=== PATIENT | female | born 1945 | race Caucasian/White ===

== ENCOUNTER 2018-07-15 15:08 | Outpatient (CLI) | payer MEDICARE, BC ==
--- NOTE | 2018-07-15 17:42 | RAD ---
RADIOGRAPH RIGHT KNEE 2 VIEWS: Date: 07/15/18 HISTORY: 72-year-old female with osteoarthritis of the knee with bilateral knee pain. COMPARISON: None available. FINDINGS: Upright images. No joint effusion. Moderate size enthesophytes at anterior and superior poles of mike lla. Moderate size osteophytes of patellofemoral compartment with joint space narrowing. Mild to mode rate osteophytes at lateral compartment without significant joint space narrowing. Small osteophytes at medial compartment without significant joint space narrowing. No fracture or dislocation. Osteopen ia. IMPRESSION: 1. Moderate osteoarthrosis of the patellofemoral compartment. 2. Mild to moderate osteoarthrosis of lateral compartment. POS: [facility]
--- NOTE | 2018-07-15 18:50 | RAD ---
RIGHT FOOT THREE VIEWS: 07/15/2018 HISTORY: Bilateral foot pain. Osteoarthritis. COMPARISON: None. FINDINGS: There is prominent degenerative change involving the first metatarsophalangeal joint, as well as thro ughout the midfoot. Postoperative screws are seen overlying the medial aspect of the mid foot. Ther e is enthesophyte formation at the insertion of the Achilles tendon and, to a lesser degree, the orig in of the plantar aponeurosis. No displaced fracture or evidence of dislocation is seen. There are scattered areas of degenerative change involving the distal and proximal interphalangeal teddy ints, at the second through fifth toes. IMPRESSION: Chronic/degenerative changes, as described above. No displaced fracture or dislocation is seen. POS: [facility]
--- NOTE | 2018-07-15 18:52 | RAD ---
LEFT KNEE TWO VIEWS: 07/15/2018 HISTORY: Pain. Osteoarthritis. COMPARISON: None. FINDINGS: There is mild lateral compartment narrowing and moderate/severe medial compartment narrowing. There is prominent patellofemoral joint space narrowing and subchondral sclerosis with posterior patellar o steophyte formation. There is enthesophyte formation at the insertion of the quadriceps tendon and t he origin of the patellar tendon. No displaced fracture or evidence of dislocation is seen. IMPRESSION: Prominent multicompartment degenerative joint disease. No acute osseous abnormality. POS: [facility]
--- NOTE | 2018-07-15 19:11 | RAD ---
LEFT FOOT THREE VIEWS: 07/15/2018 HISTORY: Foot pain. COMPARISON: None. FINDINGS: There is severe degenerative change involving the first metatarsophalangeal joint with joint space na rrowing, subchondral sclerosis, and osteophyte formation. There is prominent multifocal degenerative joint disease involving the midfoot, with joint space narrowing, subchondral sclerosis, and osteophy te formation. There is enthesophyte formation involving the insertion of the Achilles tendon and the origin of the plantar aponeurosis. Scattered areas of degenerative change with joint space narrowing and osteophyte formation noted, inv olving the proximal and distal interphalangeal joints of the second through fifth toes. IMPRESSION: Multicompartment degenerative joint disease. No acute osseous abnormality. POS: [facility]
== END 2018-07-15 15:09 | disposition home or self-care (01) ==
LOC: BICRAD 15:08
PROVIDERS: ATTEND Internal Medicine Rheumatology
DX: M25.561 Pain in right knee (principal); M79.671 Pain in right foot; M25.562 Pain in left knee; M79.672 Pain in left foot; M17.0 Bilateral primary osteoarthritis of knee; M19.072 Primary osteoarthritis, left ankle and foot; M19.071 Primary osteoarthritis, right ankle and foot

== ENCOUNTER 2019-04-02 16:00 | Outpatient (CLI) | payer MEDICARE, BC | END 2019-04-02 16:01 | disposition home or self-care (01) | LOC: SLEEPLAB 16:00 | PROVIDERS: ATTEND Internal Medicine | DX: G47.33 Obstructive sleep apnea (adult) (pediatric) (principal); R53.83 Other fatigue; R06.83 Snoring; E11.9 Type 2 diabetes mellitus without complications; I10 Essential (primary) hypertension; M19.90 Unspecified osteoarthritis, unspecified site; K21.9 Gastro-esophageal reflux disease without esophagitis; G89.29 Other chronic pain; I49.9 Cardiac arrhythmia, unspecified; M45.9 Ankylosing spondylitis of unspecified sites in spine | CPT/HCPCS: 95806 ==

== ENCOUNTER 2019-06-26 13:43 | Outpatient (CLI) | payer MEDICARE, BC ==
--- NOTE | 2019-06-26 14:43 | BD ---
EXAM: DEXA bone density examination HISTORY: Age-related osteoporosis without current pathologic fracture COMPARISON: None FINDINGS: L1--bone mineral density 1.054 g/sq cm; T score 0.6. Z score 2.5 L2--bone mineral density 1.228 g/sq cm; T score 1.8; Z score 4.0 L3--bone mineral density 1.246 g/sq cm; T score 1.5; Z score 3.8 L4--bone mineral density 1.286 g/sq cm; T score 2.0, Z score 4.4 Total L1-L4--bone mineral density 1.199 g/sq cm; T score 1.4, Z score 3.6 Right femoral neck--bone mineral density0.574; T score -2.5, Z score -0.6 Total proximal right femur--bone mineral density 0.723; T score -1.8, Z score -0.2 This patient has a 10 year WHO fracture risk of a major osteoporotic fracture of 15% and of a hip fra cture of 3.8%. IMPRESSION: Based on the WHO criteria, the patient's bone mineral density is consideredOsteoporotic. The patient is at high risk for fracture.
== END 2019-06-26 13:44 | disposition home or self-care (01) ==
LOC: BICMAMMO 13:43
PROVIDERS: ATTEND Internal Medicine Rheumatology
DX: M81.0 Age-related osteoporosis without current pathological fracture (principal)
CPT/HCPCS: 77063; 77067; 77080

== ENCOUNTER 2019-09-19 10:51 | Day surgery (SDC) | payer MEDICARE, BC ==
[2019-09-18 09:48] VITALS: BMI 27.1
[~2019-09-19 10:51] MED LIST: EPHEDRINE 25 MG/5 ML SYRINGE ONE; Lidocaine 1% PF 5 ML VIAL ONE; Metoclopramide HCl 10 MG/2 ML VIAL ONE; Ondansetron PF 4 MG/2 ML Vial ONE; PHENYLEPHRINE-NS 100 MCG/ML 10 ML SYRINGE ONE; PROPOFOL 200 MG/20 ML VIAL ONE
[2019-09-19] MEDS ORDERED: Midazolam HCl 2 mg/2 ml Vial ONE (11:35)
[2019-09-19] MEDS ORDERED: Famotidine/PF 20 mg/2ml Vial ONE (11:35)
[2019-09-19 12:05] LABS: Anion Gap 15 mmol/L (10-20); BUN (Urea Nitrogen) 19 mg/dL (9.8-20.1); Calc. Creatinine Clearance 70 mL/min (70-130); Calcium 9.5 mg/dL (7.8-10.44); Carbon Dioxide 28 mmol/L (23-31); Chloride 98 mmol/L (98-107); Estimated GFR-MDRD 64; Glucose 113 mg/dL (83-110); Potassium 3.8 mmol/L (3.5-5.1); Sodium 137 mmol/L (136-145)
--- NOTE | 2019-09-19 15:51 | MRI ---
EXAM: RIGHT KNEE MRI WITHOUT IV CONTRAST: 09/19/19 HISTORY: Right knee pain, worsening chronic knee pain. Multiplanar and multisequence MRI examination of the right knee is performed. There is marked tricomp artment irregular cartilage loss and osteoarthrosis change. Moderate suprapatellar joint distention a nd evidence for joint effusion. There is a focal area of abnormal signal in the central tibial metaph ysis region measuring 2.1 x 4.3 cm evidence for a focal area of bone infarct. There are some inteross eous cystic changes noted involving the medial aspect of the lateral tibial plateau. There is also so me minimal interosseous cystic changes involving the medial aspect of the medial tibial plateau with some fairly prominent surrounding abnormal marrow signal suggesting an active process or possibly an insufficiency or stress type fracture. There is a fairly large multilobulated appearing cystic mass a t the proximal tibiofibular joint region which some appears to be interosseous and other is paraosseo us medial to the fibula proximally. I favor this being ganglion cyst or either large synovial cyst. T he popliteal hiatus appears to be somewhat prominent but I feel that this is either synovial or more likely ganglion cystic change. Irregular complex tear involving the anterior body anterior horn of the lateral meniscus with a proba ble associated posterior root tear. Medial meniscus demonstrates free edge irregularity at the snow remover ior root, evidence for a posterior root tear. Blunting of the free edge of the body of the medial men iscus. Medial and lateral collateral ligament complexes and quadriceps ten patellar tendons and anter ior and posterior cruciate ligaments appear intact. IMPRESSION: Evidence for medial and lateral meniscal tears. 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 Evidence for probable ganglion cystic changes of the proximal tibiofibular joint and medial to that. Interosseous cystic change of the central tibia involving the medial aspect of the lateral tibia prob ably interosseous ganglion cystic change. Subchondral cystic change involving the medial aspect of the medial femoral condyle with adjacent mar row edema which may just represent active interosseous cystic change although could be associated wit h a stress or insufficiency type fracture. Other findings as above. POS: [facility]
--- NOTE | 2019-09-19 16:00 | MRI ---
MRI OF THE RIGHT FOOT PERFORMED WITHOUT CONTRAST ENHANCEMENT: 09/19/19 HISTORY: Forefoot pain. Area of pain was marked as beginning in the midfoot region and extending distally. Jaci resendiz has a history of hardware removal one to two years ago. Artifact related to hardware changes of the midfoot region are noted. This obscures detail in this ar ea other than noting the presence of fairly pronounced arthritic change. There are moderate arthritic changes in the first metatarsophalangeal joint. Marrow signal change wit hin the metatarsals and phalanges is normal. No soft tissue masses are identified. IMPRESSION: 1. Marked arthritic changes of the midfoot region with postoperative changes. 2. No signs of any stress fracture or reaction. No soft tissue mass. POS: [facility]
== END 2019-09-19 15:25 | disposition home or self-care (01) ==
LOC: SDC/OP 10:51
PROVIDERS: ATTEND Family Medicine Sports Medicine
DX: G57.91 Unspecified mononeuropathy of right lower limb (principal); M25.561 Pain in right knee; M85.80 Other specified disorders of bone density and structure, unspecified site; M45.9 Ankylosing spondylitis of unspecified sites in spine; M19.90 Unspecified osteoarthritis, unspecified site; Z87.891 Personal history of nicotine dependence; Z79.82 Long term (current) use of aspirin; Z79.84 Long term (current) use of oral hypoglycemic drugs; Z79.899 Other long term (current) drug therapy; Z88.2 Allergy status to sulfonamides; Z98.1 Arthrodesis status
CPT/HCPCS: 36415; 80048; 93005; 93010; J2001; J2250; J2405; J2704; J2765; S0028

== ENCOUNTER 2019-10-27 10:52 | Outpatient (CLI) | payer MEDICARE, BC ==
[2019-10-27 11:51] LABS: Estimated GFR-MDRD - POC Greater than 90
--- NOTE | 2019-10-27 14:30 | CT ---
CT abdomen and pelvis with IV and oral contrast HISTORY: Esophageal varices. Liver disease. FINDINGS: Mild parenchymal scarring and retraction at the right posterior medial lung base. Small gas troesophageal hernia with adjacent varices apparent. Varices also extending to the splenic hilum. Liver has a heterogeneous density and nodular contour. Small amount of free fluid around the liver an d within the dependent portion of the pelvis. The spleen measures up to 16.8 cm. Cyst at the inferior pole of the right kidney measures up to 2.9 cm. No solid mass or hydronephrosis. Prominent calcification throughout the arterial structures. Subtle diffuse wall thickening of the col on is likely related to portal venous hypertension. Prominent degenerative changes of the lumbar spine. Significant central canal stenosis, most pronounc ed at the L2-3 level. Severe stenosis of the right neural foramina at each L3-4 and L4-5 level. . IMPRESSION: Cirrhotic appearance of the liver. Findings of portal venous hypertension include gastroe sophageal and splenic varices, ascites, colonic vascular congestion, and moderate splenomegaly. Prominent atherosclerosis. Prominent degenerative changes of the lumbar spine, including significant central canal and foraminal stenoses.
== END 2019-10-27 10:53 | disposition home or self-care (01) ==
LOC: SCSCT 10:52
PROVIDERS: ATTEND Internal Medicine Gastroenterology
DX: I85.00 Esophageal varices without bleeding (principal); R94.5 Abnormal results of liver function studies; K74.60 Unspecified cirrhosis of liver; K76.6 Portal hypertension; I86.8 Varicose veins of other specified sites; R18.8 Other ascites; K63.89 Other specified diseases of intestine; R16.1 Splenomegaly, not elsewhere classified; I70.0 Atherosclerosis of aorta; M48.061 Spinal stenosis, lumbar region without neurogenic claudication; M47.816 Spondylosis without myelopathy or radiculopathy, lumbar region
CPT/HCPCS: 74177; 82565

== ENCOUNTER 2019-12-12 20:35 | Inpatient (IN) | payer MEDICARE, BC ==
[2019-12-12 21:12] LABS: #Eosinphils 0.3 thou/uL (0.0-0.7); #Lymphocytes 1.2 thou/uL (1.20-3.40); #Monocytes 0.6 thou/uL (0.11-0.59); #Neutrophils 4.4 thou/uL (1.40-6.50); %Basophils 0.7 % (0.0-1.0); %Eosinophils 4.1 % (0.0-10.0); %Lymphocytes 18.2 % (21.0-51.0); %Monocytes 9.2 % (0.0-10.0); %Neutrophils 67.8 % (42.0-75.0); Hemoglobin 11.5 g/dL (12.0-16.0); Mean Corpuscular HGB CONC 31.6 g/dL (32.0-36.0); Mean Platelet Volume 8.1 fL (7.4-10.4); Platelet Count 92 thou/uL (130-400); RBC Distribution Width 14.5 % (11.5-14.5); Red Blood Cell (RBC) Count 3.59 mill/uL (4.20-5.40); White Blood Cell (WBC) Count 6.5 thou/uL (4.8-10.8)
[2019-12-12 21:24] LABS: ALT (SGPT) 28 U/L (8-55); AST (SGOT) 55 U/L (5-34); Albumin 3.3 g/dL (3.4-4.8); Alkaline Phosphatase 164 U/L (40-110); Anion Gap 15 mmol/L (10-20); BUN (Urea Nitrogen) 16 mg/dL (9.8-20.1); Calc. Creatinine Clearance 0 mL/min (70-130); Calcium 9.6 mg/dL (7.8-10.44); Carbon Dioxide 25 mmol/L (23-31); Chloride 104 mmol/L (98-107); Estimated GFR-MDRD 62; Globulin 3.7 g/dL (2.4-3.5); Glucose 214 mg/dL (83-110); Potassium 3.5 mmol/L (3.5-5.1); Sodium 140 mmol/L (136-145)
[2019-12-12 22:23] LABS: PTT 31.1 SEC (22.9-36.1)
[2019-12-12 22:24] LABS: INR-International Normal Ratio 1.2; Prothrombin Time 15.2 SEC (12.0-14.7)
[2019-12-12] MEDS ORDERED: Pantoprazole 40 MG VIAL ONE (23:01)
[2019-12-12] MEDS ORDERED: Ondansetron PF 4 MG/2 ML Vial ONE (23:01)
[2019-12-12] MEDS ORDERED: Promethazine HCl 12.5 MG in Sodium Chloride 0.9% 50 ML IVPB PRN (23:45)
[2019-12-12] MEDS ORDERED: Octreotide Acetate 1,000 mcg/ml Multi-Dose Vial IV SCH (23:45)
[2019-12-12] MEDS ORDERED: cloNIDine 0.1 MG TAB PO PRN (23:45)
[2019-12-12] MEDS ORDERED: Guaifenesin DM 100-10/5 ML UDCUP PO PRN (23:46)
[2019-12-12] MEDS ORDERED: HYDROcodone/Acetaminophen 5/325 mg Tablet PO PRN (23:46)
--- NOTE | 2019-12-12 23:50 | PDOC.HHP ---
Hospitalist HPI - History of Present Illness Hematemesis History of Present Illness: Patient is a 73 year old female with PMH NOLAN cirrhosis who presents to ED today for 2 episodes hematemesis throwing up ~1 cup BRB with clots, she has recently diagnosed NOLAN in last several months and sees Dr Bey of GI, she recently had and EGD with banding in last several weeks (was only diagnosed with cirrhosis very recently last weeks to months) and has never had bleeding like this. She had presyncopal episode and in ED heart rate was 120s in ED, now feeling well, denies melena/abdominal pain/syncope/SOB/chest pain. She had zofran and PPI in ED. She had had fatty liver for some time only recently progressed to cirrhosis. She has prediabetes. Hospitalist ROS - Review of Systems Constitutional: reports: other (presyncope). denies: fever, chills Eyes: denies: pain, vision change ENT: denies: mouth swelling, throat pain Respiratory: denies: cough, dry, shortness of breath Cardiovascular: denies: chest pain, palpitations Gastrointestinal: reports: nausea, vomiting, other (hematemesis) Genitourinary: denies: dysuria, frequency Musculoskeletal: denies: neck pain, shoulder pain Skin: denies: rash, lesions Neurological: denies: weakness, numbness All other systems reviewed; all pertinent +/- noted in HPI/Subj Hospitalist History - Past Medical History Other Medical History: DM fatty liver cirrhosis - Past Surgical History Other Surgical History: no surgical history - Family History Other Family History: reviewed no relevant family history - Social History Smoking Status: Never smoker Alcohol: reports: None Drugs: reports: none - Exam General Appearance: NAD, awake alert Eye: PERRL, anicteric sclera ENT: normocephalic atraumatic, no oropharyngeal lesions, moist mucosa Neck: supple, symmetric, no JVD, no thyromegaly, no lymphadenopathy, no carotid bruit Heart: no murmur, no gallops, no rubs, normal peripheral pulses Heart - other findings: tachcyardia, regular Respiratory: CTAB, no wheezes, no rales, no ronchi, normal chest expansion, no tachypnea, normal percussion Gastrointestinal: soft, non-tender, non-distended, normal bowel sounds, no palpable masses, no hepatomegaly, no splenomegaly, no bruit Extremities: no cyanosis, no clubbing, no edema Skin: normal turgor, no lesions, no rashes Neurological: cranial nerve grossly intact, normal sensation to touch, no weakness, no focal deficits, no new deficit Musculoskeletal: normal tone, normal strength, no muscle wasting Psychiatric: normal affect, normal behavior, A&O x 3 Hospitalist Results - Labs Result Diagrams: 12/12/19 20:53 12/12/19 20:53 Lab results: WBC 6.5 thou/uL (4.8-10.8) 12/12/19 20:53 Hgb 11.5 g/dL (12.0-16.0) L 12/12/19 20:53 Hct 36.5 % (36.0-47.0) 12/12/19 20:53 MCV 101.0 fL (78.0-98.0) H 12/12/19 20:53 Plt Count 92 thou/uL (130-400) L 12/12/19 20:53 Neutrophils % 67.8 % (42.0-75.0) 12/12/19 20:53 Sodium 140 mmol/L (136-145) 12/12/19 20:53 Potassium 3.5 mmol/L (3.5-5.1) 12/12/19 20:53 Chloride 104 mmol/L (98-107) 12/12/19 20:53 Carbon Dioxide 25 mmol/L (23-31) 12/12/19 20:53 BUN 16 mg/dL (9.8-20.1) 12/12/19 20:53 Creatinine 0.89 mg/dL (0.6-1.1) 12/12/19 20:53 Glucose 214 mg/dL (83-110) H 12/12/19 20:53 Calcium 9.6 mg/dL (7.8-10.44) 12/12/19 20:53 Total Bilirubin 2.0 mg/dL (0.2-1.2) H 12/12/19 20:53 AST 55 U/L (5-34) H 12/12/19 20:53 ALT 28 U/L (8-55) 12/12/19 20:53 Alkaline Phosphatase 164 U/L (40-110) H 12/12/19 20:53 Serum Total Protein 7.0 g/dL (6.0-8.3) 12/12/19 20:53 Albumin 3.3 g/dL (3.4-4.8) L 12/12/19 20:53 Lipase 31 U/L (8-78) 12/12/19 20:53 Additional comment: VITAL SIGNS SunDecember 12, 2019 23:39 MIKE Cedeno Griffin BP: 156/77 Pulse: 117 Resp: 18 Temp: 98.9 (Oral) Pain: 0 O2 sat: 99 on (Room Air) Time: 12/12/2019 23:39. Hospitalist H&P A/P - Plan Plan: 74 year old female admitted for: # NOLAN cirrhosis/fatty liver disease # history of esophageal varices # hematemesis/upper GI bleed # thrombocytopenia # anemia of blood loss - admit to telemetry - q12h CBC - NPO past midnight, consult Dr Sotero WILSON in am for EGD - protonix, octreotide, ceftriaxone ordered - no current need for transfusion, transfuse if hgb < 8 # prediabetes with hyperglycemia - SSI and order a1c DVT ppx - SCD GI ppx - PPI code: full
[2019-12-13] MEDS ORDERED: Dextrose 50% Abboject 50 ML SYRINGE SLOW IVP PRN (00:39)
[2019-12-13] MEDS ORDERED: Dextrose 5% in Water 1,000 ML IV PRN (00:39)
[2019-12-13] MEDS ORDERED: HumaLOG 300 UNITS/3 ML VIAL SC PRN (00:39)
[2019-12-13 01:03] VITALS: BMI 27.9
[2019-12-13] MEDS: Sodium Chloride 0.9% 1,000 ML IV SCH ×2 (01:34→22:03)
[2019-12-13] MEDS: cefTRIAXone\\ROCEPHIN 1 GM in Sodium Chloride 0.9% 100 ML IVPB SCH (01:43)
[2019-12-13] MEDS ORDERED: Octreotide Acetate 100 MCG/ML VIAL SLOW IVP SCH (01:45)
[2019-12-13] MEDS: Ondansetron PF 4 MG/2 ML Vial IVP PRN ×2 (03:35→22:43)
[2019-12-13 04:47] LABS: Hemoglobin A1c 5.3 % (4.0-6.0); Mean Corpuscular HGB CONC 33.7 g/dL (32.0-36.0); Mean Platelet Volume 8.4 fL (7.4-10.4); Platelet Count 83 thou/uL (130-400); RBC Distribution Width 14.4 % (11.5-14.5); Red Blood Cell (RBC) Count 2.93 mill/uL (4.20-5.40); White Blood Cell (WBC) Count 6.7 thou/uL (4.8-10.8)
[2019-12-13 04:51] LABS: INR-International Normal Ratio 1.3; Prothrombin Time 15.7 SEC (12.0-14.7)
[2019-12-13 05:03] LABS: ALT (SGPT) 27 U/L (8-55); AST (SGOT) 51 U/L (5-34); Alkaline Phosphatase 145 U/L (40-110); Anion Gap 14 mmol/L (10-20); BUN (Urea Nitrogen) 21 mg/dL (9.8-20.1); Bilirubin, Direct 0.9 mg/dL (0.1-0.3); Bilirubin, Total 1.9 mg/dL (0.2-1.2); Calc. Creatinine Clearance 80 mL/min (70-130); Carbon Dioxide 22 mmol/L (23-31); Chloride 107 mmol/L (98-107); Estimated GFR-MDRD 75; Glucose 135 mg/dL (83-110); Magnesium 1.5 mg/dL (1.6-2.6); Potassium 4.5 mmol/L (3.5-5.1); Protein, Total 6.2 g/dL (6.0-8.3); Sodium 138 mmol/L (136-145)
[2019-12-13] MEDS: Pantoprazole 40 MG VIAL IVP SCH ×2 (08:05→20:18)
--- NOTE | 2019-12-13 10:45 | CON ---
DATE OF CONSULTATION: 12/13/2019 REASON FOR CONSULTATION: Upper GI bleeding. HISTORY OF PRESENT ILLNESS: Ms. Natalia Buchanan is a very pleasant 74-year- old female seen in the ER yesterday with history of hematemesis x2. This morning, she also has some black tarry stool. She never had these symptoms before. She has no abdominal pain. No nausea or vomiting. Denies any indigestion or dyspepsia. No past history of any ulcer disease. The patient is known to have fatty liver over the years and recently has seen Dr. Bey. Apparently, she had seen Dr. Bey in the last 5 or 6 years. The patient underwent EGD and colonoscopy by Dr. Bey in October of 2019. I do have the findings of the operative report. Apparently, she had a colon polyp removed and the polyp was a tubular adenoma. She was told to have esophageal varices, but no banding done. She had abdominal CAT scan done recently, which shows cirrhotic liver and also esophageal varices. She also has minimal ascites. The patient has no history of any hepatitis C or any other liver disease. No history of alcohol abuse. The patient was told to have cirrhosis due to fatty liver and NOLAN. The patient does not take any aspirin or any blood thinners. She does take tramadol. Since admission, she has been started on IV octreotide. Her blood count is slightly low at 11.5, but dropping down to 10 today. The patient had no prior episodes of any GI bleeding in the past. No relevant history. ALLERGIES: SULFA, MORE OF INTOLERANCE, WHICH CAUSES NAUSEA AND STOMACH UPSET. SHE HAS NO SKIN RASH AND FACIAL SWELLING. SOCIAL HISTORY: The patient is . She is a nonsmoker. She does not drink any alcohol. MEDICAL ILLNESS: 1. Diabetes mellitus. 2. Fatty [id number] cirrhosis. 3. History of colon polyp. 4. Esophageal varices on CAT scan of the abdomen and also on her endoscopy. No variceal banding before. 5. History of mild heart disease and does not able to explain exactly what kind of heart disease she has. She has no angina. She is on beta blockers and does see Dr. Keegan De La Cruz once in the ER. FAMILY HISTORY: No family history of any cancer, liver disease, stroke, or heart attack. REVIEW OF SYSTEMS: A 10-point system review; CONSTITUTIONAL: She has good energy level. No history of any weight loss. No fever or chills. HEAD: No chronic headache. No dizziness. EYES: No diplopia. No impaired vision. EARS, NOSE, AND THROAT: No ear pain. No discharge. No sore throat. No nose bleed. NECK: No stiffness or limitation of movement. LUNGS: No chronic coughing. No hemoptysis. No dyspnea. CARDIOVASCULAR SYSTEM: No chest pain. No palpitation, orthopnea, or PND. ABDOMEN/GASTROINTESTINAL: history of nausea or vomiting with some vague abdominal pain over the right upper quadrant. GENITOURINARY: No dysuria, hematuria, or frequency of urination. MUSCULOSKELETAL: No back pain or limitation of movement. PSYCHIATRIC: No depression or anxiety. PHYSICAL EXAMINATION: GENERAL: She is a very pleasant, female, appears very comfortable. She is awake, alert, and communicative. VITAL SIGNS: Temperature 98 degrees Fahrenheit, pulse is 83, blood pressure 162 /79. HEENT: Conjunctivae are clear. NECK: Supple. No adenitis or thyromegaly noted. CARDIOVASCULAR SYSTEM: First and second heart sounds heard. LUNGS: Clear to auscultation. ABDOMEN: Soft. Abdomen is nontender. No organomegaly. No masses. Bowel sounds normal. EXTREMITIES: Reveal no edema. CENTRAL NERVOUS SYSTEM: Awake, alert, and communicative. She has no signs of encephalopathy. LABORATORY DATA: On admission, the CBC shows WBC is 6500, hemoglobin 11.5, hematocrit 36.5, MCV 101, platelet count 92,000. This morning CBC; hemoglobin dropping to 10, hematocrit 29.6, platelets 83,000, polymorphs 67, lymphocytes 18 , monocytes 9. She had bandemia of 28% yesterday, but today no bandemia. Chemistry panel from today; bilirubin is 1.5, AST 51, ALT 27, alkaline phosphatase 145, albumin 3. Lipase is 31. She has normal lytes. BUN is 21, creatinine 0.76, glucose 135. CLINICAL IMPRESSION: 1. A 74-year-old female with a history of longstanding fatty liver, nonalcoholic steatohepatitis, liver cirrhosis from fatty liver. The patient has had no perirectal bleeding. The patient already is on CAT scan. She never had a variceal banding done as an outpatient. Based on the history, the patient most likely has bleeding from esophageal varices or portal gastropathy. 2. Diabetes mellitus. 3. Fatty liver-nonalcoholic steatohepatitis. 4. Liver cirrhosis. 5. Colon polyp. PLAN: 1. Continue octreotide. 2. Serial H and H. 3. EGD later on today and possible variceal banding. I did talk to Ms. Buchanan About the EGD procedure. She has the real need to proceed as she had an EGD done in October of 2019. Job ID: [id number] [facility]
[2019-12-13] MEDS ORDERED: Ondansetron HCl/PF 4 MG/2 ML Vial IVP PRN (11:43)
[2019-12-13] MEDS ORDERED: Promethazine HCl 25 MG/ML VIAL SLOW IVP PRN (11:43)
[2019-12-13] MEDS ORDERED: Promethazine HCl 25 MG/ML VIAL IM PRN (11:43)
[2019-12-13] MEDS ORDERED: Ondansetron PF 4 MG/2 ML Vial ONE (11:43)
[2019-12-13] MEDS ORDERED: PACU-Morphine 4MG/ML VIAL SLOW IVP PRN (11:43)
[2019-12-13] MEDS ORDERED: Lidocaine 1% PF 5 ML VIAL ONE (11:54)
[2019-12-13] MEDS ORDERED: PROPOFOL 200 MG/20 ML VIAL ONE (11:54)
[2019-12-13] MEDS: hydrALAZINE 20 MG/ML VIAL SLOW IVP PRN ×2 (15:35→20:19)
[2019-12-13 17:02] LABS: Hemoglobin 10.3 g/dL (12.0-16.0); Mean Corpuscular HGB CONC 34.1 g/dL (32.0-36.0); Mean Corpuscular Hemoglobin 34.3 pg (27.0-31.0); Mean Platelet Volume 8.1 fL (7.4-10.4); Platelet Count 112 thou/uL (130-400); RBC Distribution Width 14.4 % (11.5-14.5); White Blood Cell (WBC) Count 10.1 thou/uL (4.8-10.8)
[2019-12-13] MEDS: Acetaminophen 325 MG TAB PO PRN (20:18)
--- NOTE | 2019-12-13 20:38 | PDOC.HOSPP ---
- Subjective Encounter Date: 12/13/19 - Objective Vital Signs & Weight: Vital Signs (12 hours) Temp Pulse Resp BP BP BP Pulse Ox 12/13/19 20:19 110 H 166/74 H 12/13/19 16:09 172/75 H 12/13/19 15:35 99 12/13/19 15:29 98 F 99 16 186/83 H 97 12/13/19 12:12 97.9 F 100 18 156/64 H 97 Weight Weight 168 lb I&O: 12/12/19 12/13/19 12/14/19 06:59 06:59 06:59 Intake Total 800 1600 Output Total 300 752 Balance 500 848 Result Diagrams: 12/13/19 16:45 12/13/19 04:16 Additional Labs: Accuchecks 12/13/19 12/13/19 16:39 06:09 POC Glucose 117 H 165 H Hospitalist ROS - Medication Medications: Active Medications Generic Name Dose Route Start Last Admin Trade Name Freq PRN Reason Stop Dose Admin Acetaminophen 650 mg 12/12/19 23:46 12/13/19 20:18 Tylenol PO 650 mg Q4H PRN Administration Headache/Fever/Mild Pain (1-3) Hydralazine HCl 10 mg 12/12/19 23:45 12/13/19 20:19 Apresoline SLOW IVP 10 mg Q6H PRN Administration SBP GREATER THAN 160 Sodium Chloride 1,000 mls @ 75 mls/hr 12/12/19 23:45 12/13/19 01:34 Normal Saline 0.9% IV 1,000 mls .[id number] KATI Administration Ceftriaxone Sodium 1 gm/ 100 mls @ 200 mls/hr 12/13/19 01:00 12/13/19 01:43 Sodium Chloride IVPB 12/17/19 01:29 100 mls Q24HR KATI Administration Ondansetron HCl 4 mg 12/12/19 23:45 12/13/19 03:35 Zofran IVP 4 mg Q6H PRN Administration Nausea/Vomiting use 1st Pantoprazole Sodium 40 mg 12/13/19 09:00 12/13/19 20:18 Protonix IVP 40 mg Q12HR KATI Administration Sodium Chloride 10 ml 12/13/19 09:00 12/13/19 20:19 Flush - Normal Saline IVF 10 ml Q12HR KATI Administration Hosp A/P (1) Hematemesis Code(s): K92.0 - HEMATEMESIS Status: Acute (2) Liver cirrhosis secondary to NOLAN Code(s): K75.81 - NONALCOHOLIC STEATOHEPATITIS (NOLAN); K74.60 - UNSPECIFIED CIRRHOSIS OF LIVER Status: Acute (3) Anemia due to acute blood loss Code(s): D62 - ACUTE POSTHEMORRHAGIC ANEMIA Status: Acute (4) Esophageal varices Code(s): I85.00 - ESOPHAGEAL VARICES WITHOUT BLEEDING Status: Acute - Plan The patient was n.p.o. this morning for planned EGD with band ligation of esophageal varices. No further episodes of hematemesis. H&H stable. Continue Protonix, octreotide, and ceftriaxone. Appreciate GI.
[2019-12-13] MEDS ORDERED: Melatonin 3 MG TAB PO PRN (21:33)
[2019-12-14] MEDS: cefTRIAXone\\ROCEPHIN 1 GM in Sodium Chloride 0.9% 100 ML IVPB SCH (01:01)
[2019-12-14] MEDS: Sodium Chloride 0.9% 1,000 ML IV SCH (03:57)
[2019-12-14 04:44] LABS: Hemoglobin 10.1 g/dL (12.0-16.0); Mean Corpuscular HGB CONC 33.4 g/dL (32.0-36.0); Mean Corpuscular Hemoglobin 34.1 pg (27.0-31.0); Mean Platelet Volume 7.8 fL (7.4-10.4); Platelet Count 124 thou/uL (130-400); RBC Distribution Width 14.8 % (11.5-14.5); Red Blood Cell (RBC) Count 2.96 mill/uL (4.20-5.40); White Blood Cell (WBC) Count 9.2 thou/uL (4.8-10.8)
[2019-12-14 04:51] LABS: INR-International Normal Ratio 1.2
[2019-12-14 05:06] LABS: ALT (SGPT) 28 U/L (8-55); AST (SGOT) 48 U/L (5-34); Albumin 3.3 g/dL (3.4-4.8); Alkaline Phosphatase 118 U/L (40-110); Anion Gap 13 mmol/L (10-20); BUN (Urea Nitrogen) 24 mg/dL (9.8-20.1); Calc. Creatinine Clearance 74 mL/min (70-130); Carbon Dioxide 21 mmol/L (23-31); Chloride 107 mmol/L (98-107); Estimated GFR-MDRD 68; Glucose 126 mg/dL (83-110); Magnesium 1.4 mg/dL (1.6-2.6); Potassium 3.6 mmol/L (3.5-5.1); Protein, Total 6.6 g/dL (6.0-8.3); Sodium 137 mmol/L (136-145)
[2019-12-14] MEDS: Octreotide Acetate 1,250 MCG in Sodium Chloride 0.9% 250 ML 250 ML IVPB SCH (05:07)
[2019-12-14] MEDS: hydrALAZINE 20 MG/ML VIAL SLOW IVP PRN ×2 (05:17→14:31)
[2019-12-14] MEDS: Ondansetron PF 4 MG/2 ML Vial IVP PRN (05:27)
--- NOTE | 2019-12-14 05:32 | OP ---
DATE OF PROCEDURE: 12/13/2019 PROCEDURES PERFORMED: 1. Esophagogastroduodenoscopy. 2. Esophageal variceal banding x2. PREOPERATIVE DIAGNOSES: Liver cirrhosis, gastrointestinal bleeding, esophageal varices, and portal hypertensive gastropathy. INDICATIONS FOR PROCEDURE: Ms. Natalia Buchanan is a 74-year-old female with history of fatty liver over the years and developed liver cirrhosis due to NOLAN. She had a CAT scan of abdomen done, which revealed a nodular liver and also what appears to be esophageal varices. The patient had no previous history of any bleeding. She presents with hematemesis and also melena. The patient is undergoing EGD. POSTOPERATIVE DIAGNOSES: 3 to 4+ varicosities, 3 columns, distal esophagus extending to mid esophagus. There are 2 areas of what appears to be bleeding over the esophagus, which were banded. At the time of endoscopy, no active bleeding seen. DESCRIPTION OF PROCEDURE: The patient was placed on the left lateral position and was given sedation by Anesthesia Department. A bite block was placed. A Pentax video gastroscope under direct vision passed down the oropharynx past the GE junction into the stomach and subsequently descending duodenum. There was no active bleeding seen at the time of endoscopy. There was some old blood and some small amount of coffee-ground aspirate in the stomach. The fundus showed no gastric varices. The patient appears to have diffuse portal hypertensive gastropathy. No active bleeding seen. The gastric antrum and incisura, no lesion. The duodenal bulb and descending duodenum, no pathology. The scope was withdrawn back into the stomach. The patient had 3 columns of 3 to 4+ varicosities. A 32 to 34 cm from the oral incisor, she had two blisters and slightly ulcerated. I felt that this was site of bleeding. So, I elected to apply 2 banding over the area with good hemostasis. The scope was removed. RECOMMENDATIONS: 1. Clear liquid diet. 2. Continue IV octreotide for 72 hours and may taper off. 3. Consider to follow up H and H and transfuse p.r.n. Job ID: [id number] [facility]
[2019-12-14] MEDS: Pantoprazole 40 MG VIAL IVP SCH ×2 (09:27→21:09)
--- NOTE | 2019-12-14 12:15 | PRG ---
DATE OF SERVICE: 12/14/2019 SUBJECTIVE: This is a 74-year-old female with hypertension, arthritis, and also recently diagnosed liver cirrhosis. The patient was hospitalized because of hematemesis and melena. She underwent EGD yesterday and was found to have two spots of what appeared to be variceal bleeding. Both were banded. The patient still has three columns of large varicose veins. The patient done well overnight. She has some black tarry stool, but the blood count is pretty stable. Over the last 24 hours, her blood count is around 10 to 10.1. Her platelet count is low at 124,000. She has multiple complaints. She complains of arthritic pains and muscle cramps on nighttime, not able to sleep. Apparently, she was taking some amitriptyline at home and tramadol for pain. The patient also feels hungry. She has no nausea, no vomiting. No abdominal pain. PHYSICAL EXAMINATION: VITAL SIGNS: Afebrile, pulse is 92, blood pressure 141/67. HEENT: Conjunctivae are clear. CARDIOVASCULAR: Normal heart sounds. LUNGS: Clear to auscultation. ABDOMEN: Soft. No organomegaly. No tenderness. No masses. LABORATORY DATA: From today, WBC 9200, hemoglobin is 10.1, hematocrit 30.1, platelet count 124,000. Chem panel; normal Chem-7, glucose is 126, BUN is 24, creatinine 0.83, albumin is 3.3, bilirubin is 2, magnesium is low at 1.4, alkaline phosphatase 118. CLINICAL IMPRESSION: 1. Liver cirrhosis due to fatty liver. 2. Anemia due to blood loss. 3. Mild thrombocytopenia. 4. Hypertension. 5. Arthritis. RECOMMENDATIONS: 1. Continue octreotide until tomorrow morning, we will taper off tomorrow morning. 2. Follow up hemoglobin and hematocrit. 3. Add magnesium for muscle crampings and resume home medicines including amitriptyline and tramadol at bedtime. Job ID: [id number]
--- NOTE | 2019-12-14 12:42 | PDOC.HOSPP ---
- Subjective Encounter Date: 12/14/19 Subjective: Denies any hematemisis or vince - Objective Vital Signs & Weight: Vital Signs (12 hours) Temp Pulse Resp BP BP Pulse Ox 12/14/19 09:21 97.9 F 92 18 141/67 H 98 12/14/19 06:25 133/63 12/14/19 05:17 101 H 178/84 H 12/14/19 04:21 98.4 F 101 H 18 178/84 H 98 Weight Weight 185 lb 4.8 oz I&O: 12/13/19 12/14/19 12/15/19 06:59 06:59 06:59 Intake Total 800 3025 Output Total 300 1552 Balance 500 1473 Result Diagrams: 12/14/19 04:28 12/14/19 04:28 Additional Labs: Accuchecks 12/14/19 12/14/19 12/13/19 10:53 06:19 20:54 POC Glucose 146 H 149 H 127 H 12/13/19 16:39 POC Glucose 117 H Hospitalist ROS - Medication Medications: Active Medications Generic Name Dose Route Start Last Admin Trade Name Freq PRN Reason Stop Dose Admin Acetaminophen 650 mg 12/12/19 23:46 12/13/19 20:18 Tylenol PO 650 mg Q4H PRN Administration Headache/Fever/Mild Pain (1-3) Hydrocodone Bitart/Acetaminophen 1 tab 12/12/19 23:46 12/13/19 22:43 Stewart 5/325 PO 1 tab Q4H PRN Administration Moderate Pain (4-6) Hydralazine HCl 10 mg 12/12/19 23:45 12/14/19 05:17 Apresoline SLOW IVP 10 mg Q6H PRN Administration SBP GREATER THAN 160 Octreotide Acetate 1,250 mcg/ 251.25 mls @ 10.05 mls/hr 12/12/19 23:45 05:07 Sodium Chloride IVPB 251.25 mls INF KATI Administration 50 MCG/HR Sodium Chloride 1,000 mls @ 75 mls/hr 12/12/19 23:45 12/14/19 03:57 Normal Saline 0.9% IV Not Given .[id number] KATI Ceftriaxone Sodium 1 gm/ 100 mls @ 200 mls/hr 12/13/19 01:00 12/14/19 01:01 Sodium Chloride IVPB 12/17/19 01:29 100 mls Q24HR KATI Administration Melatonin 3 mg 12/13/19 21:33 12/13/19 21:55 Melatonin PO 3 mg HS PRN Administration Insomnia Ondansetron HCl 4 mg 12/12/19 23:45 12/14/19 05:27 Zofran IVP 4 mg Q6H PRN Administration Nausea/Vomiting use 1st Pantoprazole Sodium 40 mg 12/13/19 09:00 12/14/19 09:27 Protonix IVP 40 mg Q12HR KATI Administration Sodium Chloride 10 ml 12/13/19 09:00 12/14/19 09:28 Flush - Normal Saline IVF 10 ml Q12HR KATI Administration - Exam General Appearance: awake alert ENT: normocephalic atraumatic Neck: supple Heart: RRR, no murmur, no gallops, no rubs Respiratory: CTAB, no wheezes, no rales, no ronchi, normal chest expansion Gastrointestinal: soft, non-tender, non-distended, normal bowel sounds Extremities: no cyanosis Hosp A/P (1) Hematemesis Code(s): K92.0 - HEMATEMESIS Status: Acute (2) 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 this morning for planned EGD with band ligation of esophageal varices. No further episodes of hematemesis. H&H stable. Continue Protonix, octreotide, and ceftriaxone. Appreciate GI. 12/13: S/P EGD with band ligation. No further episodes of bleeding. H&H stable. Octreotide will be DCed tomorrow. Continue Ceftriaxone and protonix.
[2019-12-14] MEDS ORDERED: Spironolactone 25 MG TAB PO SCH (12:45)
[2019-12-14] MEDS ORDERED: Furosemide 20 MG TAB PO SCH (12:45)
[2019-12-14 17:17] LABS: Hemoglobin 9.7 g/dL (12.0-16.0); Mean Corpuscular Hemoglobin 33.7 pg (27.0-31.0); Mean Corpuscular Volume 99.1 fL (78.0-98.0); Mean Platelet Volume 7.4 fL (7.4-10.4); Platelet Count 118 thou/uL (130-400); RBC Distribution Width 14.8 % (11.5-14.5); Red Blood Cell (RBC) Count 2.89 mill/uL (4.20-5.40); White Blood Cell (WBC) Count 8.3 thou/uL (4.8-10.8)
[2019-12-14] MEDS: Acetaminophen 325 MG TAB PO PRN ×2 (17:25→21:07)
[2019-12-14] MEDS ORDERED: traMADol HCl 50 MG TAB PO SCH (20:00)
[2019-12-14] MEDS ORDERED: Amitriptyline HCl 25 MG TAB PO SCH (21:00)
[2019-12-14] MEDS: Magnesium Oxide 400 MG TAB PO SCH (21:09)
[2019-12-15] MEDS: cefTRIAXone\\ROCEPHIN 1 GM in Sodium Chloride 0.9% 100 ML IVPB SCH (01:39)
[2019-12-15 04:35] LABS: Mean Corpuscular HGB CONC 33.8 g/dL (32.0-36.0); Mean Corpuscular Hemoglobin 33.8 pg (27.0-31.0); Mean Platelet Volume 7.4 fL (7.4-10.4); Platelet Count 94 thou/uL (130-400); RBC Distribution Width 14.4 % (11.5-14.5); Red Blood Cell (RBC) Count 2.65 mill/uL (4.20-5.40); White Blood Cell (WBC) Count 6.3 thou/uL (4.8-10.8)
[2019-12-15 04:39] LABS: INR-International Normal Ratio 1.2; Prothrombin Time 15.3 SEC (12.0-14.7)
[2019-12-15 04:56] LABS: ALT (SGPT) 25 U/L (8-55); AST (SGOT) 45 U/L (5-34); Albumin 3.1 g/dL (3.4-4.8); Alkaline Phosphatase 112 U/L (40-110); Anion Gap 12 mmol/L (10-20); BUN (Urea Nitrogen) 22 mg/dL (9.8-20.1); Bilirubin, Direct 0.7 mg/dL (0.1-0.3); Bilirubin, Total 1.3 mg/dL (0.2-1.2); Calc. Creatinine Clearance 68 mL/min (70-130); Calcium 8.3 mg/dL (7.8-10.44); Carbon Dioxide 23 mmol/L (23-31); Chloride 105 mmol/L (98-107); Estimated GFR-MDRD 55; Glucose 120 mg/dL (83-110); Magnesium 1.6 mg/dL (1.6-2.6); Potassium 3.3 mmol/L (3.5-5.1); Protein, Total 6.2 g/dL (6.0-8.3); Sodium 137 mmol/L (136-145)
[2019-12-15] MEDS: Acetaminophen 325 MG TAB PO PRN ×2 (06:34→17:02)
[2019-12-15] MEDS: Octreotide Acetate 1,250 MCG in Sodium Chloride 0.9% 250 ML 250 ML IVPB SCH (07:17)
[2019-12-15] MEDS ORDERED: Spironolactone 25 MG TAB PO SCH (08:00)
[2019-12-15] MEDS ORDERED: Amitriptyline HCl 25 MG TAB PO SCH (09:00)
[2019-12-15] MEDS ORDERED: Furosemide 20 MG TAB PO SCH (09:00)
[2019-12-15] MEDS: Magnesium Oxide 400 MG TAB PO SCH ×2 (09:37→17:03)
[2019-12-15] MEDS ORDERED: Octreotide Acetate 1,250 MCG in Sodium Chloride 0.9% 250 ML 250 ML IVPB SCH (11:30)
[2019-12-15] MEDS: Pantoprazole 40 MG VIAL IVP SCH (12:15)
[2019-12-15] MEDS: hydrALAZINE 20 MG/ML VIAL SLOW IVP PRN (13:21)
[2019-12-15 15:07] VITALS: TEMP 98.6
[2019-12-15 16:56] LABS: Hemoglobin 10.3 g/dL (12.0-16.0); Mean Corpuscular HGB CONC 34.2 g/dL (32.0-36.0); Mean Corpuscular Hemoglobin 34.1 pg (27.0-31.0); Mean Corpuscular Volume 99.7 fL (78.0-98.0); Mean Platelet Volume 7.4 fL (7.4-10.4); Platelet Count 135 thou/uL (130-400); RBC Distribution Width 14.7 % (11.5-14.5); Red Blood Cell (RBC) Count 3.01 mill/uL (4.20-5.40); White Blood Cell (WBC) Count 9.6 thou/uL (4.8-10.8)
[2019-12-15 16:59] VITALS: BP 91/50
--- NOTE | 2019-12-15 18:16 | PRG ---
DATE OF SERVICE: 12/15/2019 SUBJECTIVE: This is a 74-year-old female, hospitalized on 12/12/2019 with hematemesis and also having black tarry stool. She underwent EGD on 12/13/2019 and was found to have esophageal varices and had banding done. She was on IV octreotide. She had done well over the last 3 days. Although she has sometimes noted tarry stool, her blood count remained stable. Not having nausea, vomiting. No hematemesis. No abdominal pain. She is anxious to get out of the hospital and wants to go home. She had been asking for discharge every day since I saw her over the weekend. Her octreotide was tapered off to 25 mcg per hour this morning. She has no complaints. OBJECTIVE: VITAL SIGNS: Afebrile, her pulse is 104, blood pressure 174/74. HEENT: Conjunctivae are clear. CARDIOVASCULAR: First and second sounds heard. LUNGS: Clear to auscultation. ABDOMEN: Soft. No organomegaly. No tenderness. LABORATORY DATA: WBC 9600, hemoglobin 10.3, hematocrit 30, MCV 99.7, platelet count is 135,000. RECOMMENDATION: Discontinue IV octreotide this evening. As she is clinically stable and blood count has been stable over the last 72 hours, she can go home. She will be sent to see Dr. Sherry Bey, her primary business area manager. Apparently, she will need repeat EGD and banding in the future. Job ID: [id number]
--- NOTE | 2019-12-16 06:06 | DIS ---
DATE OF ADMISSION: 12/12/2019 DATE OF DISCHARGE: 12/15/2019 DISCHARGE DIAGNOSES: 1. Hematemesis. 2. Esophageal varices. 3. Liver cirrhosis secondary to nonalcoholic steatohepatitis. 4. Anemia due to acute blood loss. DISCHARGE MEDICATIONS: 1. Pantoprazole 40 mg orally daily. 2. Aldactone 100 mg orally daily. 3. Furosemide 40 mg orally daily. 4. Ursodiol 300 mg two tablets daily. 5. Tramadol 50 mg orally every 6 hours as needed for pain. 6. Montelukast 10 mg orally daily. 7. Metoprolol succinate 50 mg orally daily. 8. Metformin 500 mg orally twice daily. 9. Lisinopril 10 mg orally daily. 10. Leflunomide 20 mg orally daily. 11. Gabapentin 600 mg orally twice daily. 12. Citalopram 10 mg orally daily. 13. Aspirin 81 mg orally daily. 14. Amitriptyline 10 mg orally nightly. HISTORY OF PRESENT ILLNESS AND HOSPITAL COURSE: The patient is a 74-year-old female with history of NOLAN cirrhosis, who presented to the ED with 2 episodes of hematemesis, throwing up about one cup of bright red blood with clots. She was diagnosed with NOLAN several months ago and follows with Dr. Bey from GI. The patient had a presyncopal episode in the ER and her heart rate was elevated at 120. Fluid resuscitation was initiated and the patient was admitted to the hospital. Her hemoglobin remained stable throughout her hospital stay. She was started on IV octreotide drip, Protonix drip, and IV Rocephin. GI was consulted and the patient underwent an EGD procedure by Dr. Camarena, which showed portal hypertensive gastropathy and esophageal varices, status post banding x2. Postoperative hospital course was unremarkable and the patient was discharged home in stable condition. Job ID: [id number]
== END 2019-12-15 18:20 | disposition home or self-care (01) | DRG 432 ==
LOC: ERS 20:35 → 2NO 23:30
PROVIDERS: ADMIT Internal Medicine; ATTEND Internal Medicine
PROC: 06L38CZ Occlusion of Esophageal Vein with Extraluminal Device, Via Natural or Artificial Opening Endoscopic (ICD-10-PCS; principal; 2019-12-13)
DX: K74.69 Other cirrhosis of liver (principal); I85.11 Secondary esophageal varices with bleeding; K76.6 Portal hypertension; D62 Acute posthemorrhagic anemia; R18.8 Other ascites; D69.6 Thrombocytopenia, unspecified; K31.89 Other diseases of stomach and duodenum; M19.90 Unspecified osteoarthritis, unspecified site; E11.65 Type 2 diabetes mellitus with hyperglycemia; K75.81 Nonalcoholic steatohepatitis (NASH); Z88.2 Allergy status to sulfonamides; Z86.010 Personal history of colon polyps
CPT/HCPCS: 36415; 36416; 80048; 80053; 80076; 83036; 83690; 83735; 85025; 85027; 85610; 85730; 86850; 86900; 86901; 93005; 96361; 96374; C9113; J0360; J0696; J2001; J2354; J2405; J2704; J3490; J7050

== ENCOUNTER 2019-12-25 11:08 | Day surgery (SDC) | payer MEDICARE, BC ==
[2019-12-24 13:53] VITALS: BMI 27.9
[2019-12-25] MEDS ORDERED: Lidocaine 1% PF 5 ML VIAL ONE (11:30)
[2019-12-25] MEDS ORDERED: Sodium Bicarbonate 2.5 MEQ/5 ML VIAL ONE (11:30)
[2019-12-25 11:42] LABS: INR-International Normal Ratio 1.1; PTT 32.9 SEC (22.9-36.1); Prothrombin Time 14.4 sec (12.0-14.7)
[2019-12-25 11:56] LABS: ALT (SGPT) 23 U/L (8-55); AST (SGOT) 45 U/L (5-34); Albumin 3.7 g/dL (3.4-4.8); Alkaline Phosphatase 144 U/L (40-110); Anion Gap 17 mmol/L (10-20); BUN (Urea Nitrogen) 16 mg/dL (9.8-20.1); Bilirubin, Total 1.2 mg/dL (0.2-1.2); Calc. Creatinine Clearance 51 mL/min (70-130); Calcium 9.3 mg/dL (7.8-10.44); Carbon Dioxide 21 mmol/L (23-31); Chloride 105 mmol/L (98-107); Estimated GFR-MDRD 45; Globulin 3.6 g/dL (2.4-3.5); Glucose 125 mg/dL (83-110); Protein, Total 7.3 g/dL (6.0-8.3); Sodium 139 mmol/L (136-145)
--- NOTE | 2019-12-25 12:27 | ULT ---
Ultrasound-guided paracentesis: HISTORY: Cirrhosis and ascites. FINDINGS: Informed consent obtained prior to the procedure. Preprocedural imaging demonstrated intrap eritoneal free fluid. Preprocedure imaging demonstrates only a small amount of free fluid in the right upper quadrant. An a kirk was marked in the right mid abdomen in the mid axillary line, and then meticulously prepped and draped in normal sterile fashion and anesthetized with 1% buffered lidocaine. With direct sonographic guidance, a 25-gauge needle was advanced into the abdomen. Approximately 30 mL of clear straw-colored fluid was aspirated. Needle was removed, and hemostasis was achieved with direct pressure. A dry sterile dressing was placed. The patient tolerated the procedure well and without immediate complication. Small amount of free fluid persists in the right upper quadrant. IMPRESSION: Technically successful ultrasound-guided paracentesis with aspiration of 30 mL of clear straw-colored fluid. Specimen was sent for labs.
[2019-12-25 14:22] LABS: Body Fluid Source Ascites Body Fluid
[2019-12-25 14:23] LABS: BF Color Yellow; Clarity Hazy (Clear); Tube # EDTA
[2019-12-25 14:31] VITALS: BP 181/83; TEMP 97.9
[2019-12-25 14:33] LABS: BF WBC/Nonhematics Ct.-Manual 166 /cumm
[2019-12-25 14:34] LABS: BF RBC Count - Manual 81 /cumm
[2019-12-25 15:16] LABS: BF Segmented Neutrophils 9 %; Cell Count Non Hematic 59 %; Eosinophils 2 %; Lymphocytes 29 %
== END 2019-12-25 12:30 | disposition home or self-care (01) ==
LOC: ULT 11:08
PROVIDERS: ATTEND Internal Medicine Gastroenterology
PROC: 0W9G3ZZ Drainage of Peritoneal Cavity, Percutaneous Approach (ICD-10-PCS; principal; 2019-12-25)
DX: R18.8 Other ascites (principal); K74.60 Unspecified cirrhosis of liver; K76.0 Fatty (change of) liver, not elsewhere classified; I10 Essential (primary) hypertension; D64.9 Anemia, unspecified; Z88.2 Allergy status to sulfonamides
CPT/HCPCS: 49083; 80053; 82042; 85060; 85610; 85730; 87070; 87205; 89051; J2001

== ENCOUNTER 2020-01-19 14:21 | Outpatient (CLI) | payer MEDICARE, BC ==
--- NOTE | 2020-01-19 17:51 | CT ---
CT HEAD WITHOUT CONTRAST: INDICATION: Confusion. FINDINGS: Mild cortical volume loss. Ventricles have normal size and position. No evidence of intracranial ma ss or infarct. No evidence of hemorrhage. No significant white matter abnormality. Sinuses and mas toids appear clear. IMPRESSION: Unremarkable head CT. POS: AGW
== END 2020-01-19 14:22 | disposition home or self-care (01) ==
LOC: CT 14:21
PROVIDERS: ATTEND Internal Medicine Gastroenterology
DX: K72.90 Hepatic failure, unspecified without coma (principal); I85.01 Esophageal varices with bleeding; R18.8 Other ascites; K74.69 Other cirrhosis of liver; Z86.010 Personal history of colon polyps
CPT/HCPCS: 70450

== ENCOUNTER → 2020-02-05 | Day surgery (SDC) | payer MEDICARE, BC ==
[~2020-02-05] MED LIST changes: -EPHEDRINE 25 MG/5 ML SYRINGE ONE; -Metoclopramide HCl 10 MG/2 ML VIAL ONE; -Ondansetron PF 4 MG/2 ML Vial ONE; -PHENYLEPHRINE-NS 100 MCG/ML 10 ML SYRINGE ONE; -PROPOFOL 200 MG/20 ML VIAL ONE; +Sodium Bicarbonate 2.5 MEQ/5 ML VIAL ONE
[2020-02-05 13:15] LABS: #Basophils 0.1 thou/uL (0.0-0.2); #Eosinphils 0.3 thou/uL (0.0-0.7); #Lymphocytes 1.4 thou/uL (1.20-3.40); #Monocytes 0.8 thou/uL (0.11-0.59); #Neutrophils 3.7 thou/uL (1.40-6.50); %Basophils 0.9 % (0.0-1.0); %Eosinophils 4.1 % (0.0-10.0); %Lymphocytes 22.8 % (21.0-51.0); %Monocytes 12.8 % (0.0-10.0); %Neutrophils 59.4 % (42.0-75.0); Hemoglobin 10.5 g/dL (12.0-16.0); Mean Corpuscular HGB CONC 33.6 g/dL (32.0-36.0); Mean Corpuscular Hemoglobin 32.7 pg (27.0-31.0); Mean Corpuscular Volume 97.6 fL (78.0-98.0); Mean Platelet Volume 8.2 fL (7.4-10.4); Platelet Count 102 thou/uL (130-400); RBC Distribution Width 13.7 % (11.5-14.5); Red Blood Cell (RBC) Count 3.21 mill/uL (4.20-5.40); White Blood Cell (WBC) Count 6.3 thou/uL (4.8-10.8)
[2020-02-05 13:19] LABS: INR-International Normal Ratio 1.1; PTT 36.4 sec (22.9-36.1); Prothrombin Time 14.5 sec (12.0-14.7)
--- NOTE | 2020-02-05 14:59 | ULT ---
Exam: Ultrasound guided paracentesis HISTORY: Ascites COMPARISON: 12/25/2019 FINDINGS: Successful ultrasound-guided paracentesis. Total of 2800 mL ascites was aspirated. TECHNIQUE: Consent obtained reformatory ultrasound-guided paracentesis. Right lower quadrant was deem ed appropriate. Skin was prepped and draped in a sterile fashion. 1% lidocaine, buffered with sodium bicarbonate was used for local anesthesia. Under ultrasound guidance, a 5 Malay 7 cm Yueh cat heter is advanced in the peritoneal space. A total of 2800 mL ascites was aspirated. No immediate or postprocedural complications IMPRESSION: Successful ultrasound-guided paracentesis.
[2020-02-05 16:36] VITALS: BP 138/67; TEMP 98.8; BMI 29.6
== END ==
LOC: ULT 12:52
PROVIDERS: ATTEND Internal Medicine Gastroenterology
PROC: 0W9G3ZZ Drainage of Peritoneal Cavity, Percutaneous Approach (ICD-10-PCS; principal; 2020-02-05)
DX: K76.0 Fatty (change of) liver, not elsewhere classified (principal); K74.60 Unspecified cirrhosis of liver; R18.8 Other ascites; K72.90 Hepatic failure, unspecified without coma; I73.00 Raynaud's syndrome without gangrene; I10 Essential (primary) hypertension; M19.90 Unspecified osteoarthritis, unspecified site; M45.9 Ankylosing spondylitis of unspecified sites in spine; E03.9 Hypothyroidism, unspecified; Z86.010 Personal history of colon polyps; Z79.82 Long term (current) use of aspirin; Z79.84 Long term (current) use of oral hypoglycemic drugs; Z79.899 Other long term (current) drug therapy; Z88.2 Allergy status to sulfonamides
CPT/HCPCS: 36415; 49083; 85025; 85610; 85730; J2001

== ENCOUNTER 2020-04-22 09:08 | Day surgery (SDC) | payer MEDICARE, BC ==
[2020-04-21 16:09] VITALS: BMI 29.6
[2020-04-22 10:08] LABS: INR-International Normal Ratio 1.2; PTT 37.5 sec (22.9-36.1); Prothrombin Time 15.2 sec (12.0-14.7)
[2020-04-22 10:13] LABS: Hemoglobin 11.2 g/dL (12.0-16.0); Mean Corpuscular HGB CONC 32.9 g/dL (32.0-36.0); Mean Corpuscular Hemoglobin 31.4 pg (27.0-31.0); Mean Corpuscular Volume 95.5 fL (78.0-98.0); Red Blood Cell (RBC) Count 3.56 mill/uL (4.20-5.40); White Blood Cell (WBC) Count 5.3 thou/uL (4.8-10.8)
[2020-04-22] MEDS ORDERED: Sodium Bicarbonate 2.5 MEQ/5 ML VIAL ONE (10:30)
[2020-04-22 10:45] LABS: #Eosinphils 0.2 thou/uL (0.0-0.7); #Lymphocytes 1.1 thou/uL (1.20-3.40); #Monocytes 0.6 thou/uL (0.11-0.59); #Neutrophils 3.4 thou/uL (1.40-6.50); %Basophils 0.8 % (0.0-1.0); %Eosinophils 3.9 % (0.0-10.0); %Lymphocytes 20.7 % (21.0-51.0); %Monocytes 10.9 % (0.0-10.0); %Neutrophils 63.6 % (42.0-75.0); Anisocytosis SLIGHT = 6-15 cells (100X) (0-5/hpf); Elliptocytes SLIGHT = 2-5 cells (100X) (0-1/hpf); MDiff Complete? YES; Mean Platelet Volume 8.7 fL (7.4-10.4); Platelet Count 84 thou/uL (130-400); Platelet Morphology Comment Appears Decreased
--- NOTE | 2020-04-22 11:05 | ULT ---
Limited abdominal ultrasound: 04/22/2020 HISTORY: Evaluate for ascites FINDINGS: The patient presented for paracentesis. However, there is no free fluid seen within the abd omen/pelvis. IMPRESSION: No ascites seen at this time.
== END 2020-04-22 11:10 | disposition home or self-care (01) ==
LOC: ULT 09:08
PROVIDERS: ATTEND Internal Medicine Gastroenterology
DX: K74.60 Unspecified cirrhosis of liver (principal); R18.8 Other ascites; K72.90 Hepatic failure, unspecified without coma; I10 Essential (primary) hypertension; E03.9 Hypothyroidism, unspecified; M45.9 Ankylosing spondylitis of unspecified sites in spine; M19.90 Unspecified osteoarthritis, unspecified site; Z79.82 Long term (current) use of aspirin; Z79.84 Long term (current) use of oral hypoglycemic drugs; Z79.899 Other long term (current) drug therapy; Z88.2 Allergy status to sulfonamides
CPT/HCPCS: 76705; 85025; 85610; 85730

== ENCOUNTER 2020-09-17 09:09 | Day surgery (SDC) | payer MEDICARE, BC ==
[2020-09-17] MEDS ORDERED: Acetaminophen 325 MG TAB PO SCH (10:00)
[2020-09-17 14:05] VITALS: BP 169/97; TEMP 98.3
== END 2020-09-17 14:05 | disposition home or self-care (01) ==
LOC: ONC/OP 09:09
PROVIDERS: ATTEND Internal Medicine Gastroenterology
PROC: 30233N1 Transfusion of Nonautologous Red Blood Cells into Peripheral Vein, Percutaneous Approach (ICD-10-PCS; principal; 2020-09-17)
DX: D64.9 Anemia, unspecified (principal); Z88.2 Allergy status to sulfonamides
CPT/HCPCS: 36430; 86850; 86900; 86901; P9016

== ENCOUNTER 2023-02-15 14:42 | Outpatient (CLI) | payer MEDICARE, BC | END 2023-02-15 14:43 | disposition home or self-care (01) | LOC: ULT 14:42 | PROVIDERS: ATTEND Internal Medicine | DX: L03.116 Cellulitis of left lower limb (principal); M79.605 Pain in left leg; M79.89 Other specified soft tissue disorders ==